=== PATIENT | female | born 1990 | race Caucasian/White ===

== ENCOUNTER 2018-09-30 16:58 | Emergency (ER) | payer BC ==
[~2018-09-30] VITALS: Ht 172.7 cm; Wt 86.2 kg
[2018-09-30] MEDS ORDERED: KETOROLAC TROMETHAMINE 30 MG INJ ONE (17:38)
--- NOTE | 2018-09-30 17:40 | NUR ---
PT IS IN ROOM #2A. DR SCHWAB EVALUATED THE PT. PT WAS D/C'd TO HOME. D/C INSTRUCTIONS GIVEN TO THE PT.
[2018-09-30] MEDS ORDERED: KETOROLAC TROMETHAMINE 30 MG INJ IM ONE (17:45)
[2018-09-30 18:15] VITALS: BP 128/73
== END 2018-09-30 18:16 | disposition home or self-care (01) ==
LOC: ER 17:00
DX: M54.18 Radiculopathy, sacral and sacrococcygeal region (principal); J45.909 Unspecified asthma, uncomplicated
CPT/HCPCS: 96372; 99283; J1885; A4663

== ENCOUNTER 2020-12-16 00:58 | Emergency (ER) | payer BC ==
[~2020-12-16] VITALS: Ht 172.7 cm; Wt 77.1 kg
--- NOTE | 2020-12-16 01:25 | NUR ---
Dr. Roberto at bedside for MSE.
--- NOTE | 2020-12-16 01:34 | NUR ---
[employer] called by 01:34a
[2020-12-16 01:35] LABS: *BILIRUBIN,URIN NEGATIVE (NEGATIVE); *BLOOD, URINE NEGATIVE (NEGATIVE); *CLARITY,URINE CLEAR (CLEAR); *COLOR,URINE YELLOW (YELLOW); *KETONES,URINE NEGATIVE (NEGATIVE); *UROBILINOGEN,URINE 0.2 E.U./dl (NORMAL); LEUKOCYTE ESTERASE ,URINE NEGATIVE (NEGATIVE); NITRITE, URINE NEGATIVE (NEGATIVE); UGLUCOSE NEGATIVE (NEGATIVE)
[2020-12-16 01:38] LABS: *URINE HCG, QUAL NEGATIVE (NEGATIVE)
[2020-12-16 01:44] LABS: HEMATOCRIT 39.7 % (31.2-41.9); MEAN CORPUSCULAR HEMOGLOBIN 32.6 uug (24.7-32.8); MEAN CORPUSCULAR VOLUME 96.5 fL (75.5-95.3); PLATELET COUNT (AUTO) 263 K/uL (179-408)
[2020-12-16 01:53] LABS: CREATININE 0.9 mg/dL (0.6-1.3); POTASSIUM 3.5 mmol/L (3.5-5.1)
[2020-12-16 01:59] LABS: BILIRUBIN,DIRECT 0.1 mg/dL (0.0-0.2); BILIRUBIN,TOTAL 0.1 mg/dL (0.2-1.0); TOTAL PROTEIN, SERUM 7.4 g/dL (6.4-8.2)
--- NOTE | 2020-12-16 02:11 | NUR ---
Ultrasound at bedside.
[2020-12-16] MEDS ORDERED: IOHEXOL 300MG/ML 100 ML INFUS..BTL ONE (03:27)
[2020-12-16] MEDS ORDERED: SWABABLE VALVE TRANSFER SET EA MC ONE (03:27)
[2020-12-16] MEDS ORDERED: IV NORMAL SALINE 250 ML IV ONE (03:27)
--- NOTE | 2020-12-16 03:32 | NUR ---
Pt out of ER for CT.
--- NOTE | 2020-12-16 03:47 | NUR ---
Pt back to ER from CT.
--- NOTE | 2020-12-16 03:57 | NUR ---
CT abdomen/pelvis with contrast performed @ 03:35 OMNIPAQUE 300:100CC ADMINISTERED BUN 20 CREAT 0.9 GFR 74
[2020-12-16] MEDS ORDERED: OXYC-128 PO (04:22)
--- NOTE | 2020-12-16 04:31 | NUR ---
Patient discharged to home in stable condition. Written and verbal after care instructions given. Patient verbalizes understanding of instructions. Stressed follow up or return to ER for worsening s/s. Patient out of ER with steady gait, no acute signs of distress, VSS, all belongings taken, IV site discontinued, provided with copies of lab and CT results and CD.
[2020-12-16 04:33] VITALS: BP 114/64
== END 2020-12-16 04:33 | disposition home or self-care (01) ==
LOC: ER 01:00
DX: N94.89 Other specified conditions associated with female genital organs and menstrual cycle (principal); J45.909 Unspecified asthma, uncomplicated
CPT/HCPCS: 36415; 74177; 76856; 80048; 80076; 81003; 83690; 84703; 85025; 99285; Q9967; A4663; J7030; J7050